=== PATIENT | female | born 1935 | race African-American/Black ===

== ENCOUNTER 2019-09-22 14:02 | Emergency (ER) | payer OTHER ==
[~2019-09-22] VITALS: Ht 165.1 cm; Wt 60.4 kg
[~2019-09-22 14:02] MED LIST: ASPI-1079 PO; ATENOL PO; ATOR-2 PO; LOSA25TA3 PO; METF100C2 PO; PRIM250T33 PO; [UNRECOGNIZED DRUG - OTHER] PO
[2019-09-22 14:46] LABS: HEMATOCRIT. 43.1 % (36.0-48.0); HEMOGLOBIN. 14.7 g/dL (12.0-16.0); MEAN CORPUSCULAR HEMOGLOBIN 30.7 pg (28.0-32.0); MEAN PLATELET VOLUME 8.3 fl (7.4-10.4); PLATELET 323 x1000/uL (130-400); RED BLOOD CELL COUNT 4.79 mill/uL (4.2-5.4); RED CELL DISTRIBUTION WIDTH 14.3 % (11.6-14.6)
[2019-09-22 14:55] LABS: CHLORIDE 99 mEq/L (98-107)
[2019-09-22 14:58] LABS: INR 1.2; PARTIAL THROMBOPLASTIN TIME 20.3 sec (23.4-31.0); PROTHROMBIN TIME 11.8 sec (9.6-11.0)
[2019-09-22 15:05] LABS: LDL CHOLESTEROL 75 mg/dL (5-100)
[2019-09-22] MEDS ORDERED: CLOPIDOGREL 75MG TABLET PO ONE (15:15)
[2019-09-22 15:44] LABS: PLATELET ESTIMATE NORMAL
[2019-09-22 18:10] VITALS: BP 135/83
[2019-09-22] MEDS ORDERED: IOHEXOL-350 100 ML BOTTLE ONE (18:27)
== END 2019-09-22 19:16 | disposition short-term general hospital (02) ==
LOC: ER 14:16 → CANBEDREQ 20:28
DX: I63.9 Cerebral infarction, unspecified (principal); R29.810 Facial weakness; R79.89 Other specified abnormal findings of blood chemistry; E83.52 Hypercalcemia; I69.351 Hemiplegia and hemiparesis following cerebral infarction affecting right dominant side; I69.318 Other symptoms and signs involving cognitive functions following cerebral infarction
CPT/HCPCS: 36415; 70450; 70496; 70498; 71045; 80053; 83721; 84484; 85025; 85610; 85730; 93005; 99291; Q9967

== ENCOUNTER 2022-03-26 12:09 | Emergency (ER) | payer OTHER ==
[~2022-03-26] VITALS: Ht 160 cm; Wt 63.1 kg
[~2022-03-26 12:09] MED LIST changes: -PRIM250T33 PO; +PRIM250T7 PO
[2022-03-26] MEDS ORDERED: IOHEXOL-350 100 ML BOTTLE ONE (12:20)
[2022-03-26 13:04] LABS: BASOPHILS % 0.6 % (0.0-2.0); EOSINOPHILS % 4.9 % (0.0-5.0); HEMATOCRIT. 36.1 % (36.0-48.0); HEMOGLOBIN. 12.2 g/dL (12.0-16.0); LYMPHOCYTES % 34.6 % (20.0-50.0); MEAN CORPUSCULAR HEMOGLOBIN 30.3 pg (28.0-32.0); MEAN CORPUSCULAR VOLUME 89.9 fL (81.0-99.0); MEAN PLATELET VOLUME 7.4 fl (7.4-10.4); MONOCYTES % 8.8 % (2.0-8.0); NEUTROPHILS % 51.1 % (40.0-76.0); PLATELET 229 x1000/uL (130-400); RED BLOOD CELL COUNT 4.01 mill/uL (4.2-5.4); RED CELL DISTRIBUTION WIDTH 13.6 % (11.6-14.6)
[2022-03-26 13:05] LABS: CHLORIDE 101 mEq/L (98-107)
[2022-03-26 13:16] LABS: ETHANOL BLOOD < 10 mg/dL
[2022-03-26] MEDS ORDERED: ASPIRIN 81MG TABLET PO ONE (13:45)
[2022-03-26 14:40] LABS: CLARITY URINE CLOUDY (CLEAR); COLOR URINE YELLOW (YELLOW); KETONES URINE NEGATIVE (NEGATIVE); LEUKOCYTE ESTERASE URINE 2+ (NEGATIVE); NITRITE URINE NEGATIVE (NEGATIVE); OCCULT BLOOD URINE NEGATIVE (NEGATIVE); PH URINE 8.5 (4.5-8.0); PROTEIN URINE NEGATIVE (NEGATIVE); SPECIFIC GRAVITY URINE 1.025 (1.005-1.030)
[2022-03-26 14:59] LABS: *AMPHETAMINES SCREEN URINE NEGATIVE (NEGATIVE); *BARBITURATES SCREEN URINE NEGATIVE (NEGATIVE); *BENZODIAZEPINES SCREEN URINE NEGATIVE (NEGATIVE); *COCAINE SCREEN URINE NEGATIVE (NEGATIVE); CANNABINOID URINE SCREEN NEGATIVE (NEGATIVE); METHADONE URINE SCREEN NEGATIVE (NEGATIVE); OPIATES URINE SCREEN NEGATIVE (NEGATIVE); PHENCYCLIDINE URINE SCREEN NEGATIVE (NEGATIVE)
[2022-03-26] MEDS ORDERED: CEFTRIAXONE 1 G PREMIX 50 ML IV ONE (15:45)
[2022-03-26 17:56] VITALS: BP 127/50
== END 2022-03-26 18:45 | disposition short-term general hospital (02) ==
LOC: ER 12:26 → CANBEDREQ 03-27 07:49
DX: R07.89 Other chest pain (principal); N30.00 Acute cystitis without hematuria; E11.9 Type 2 diabetes mellitus without complications; I10 Essential (primary) hypertension; Z86.73 Personal history of transient ischemic attack (TIA), and cerebral infarction without residual deficits; Z79.899 Other long term (current) drug therapy; Z88.5 Allergy status to narcotic agent; Z20.822 Contact with and (suspected) exposure to COVID-19
CPT/HCPCS: 36415; 70450; 70496; 70498; 71045; 80053; 80305; 80320; 81003; 84484; 85025; 87426; 93005; 96365; 99285; C9803; J0696; Q9967; G0480